=== PATIENT | male | born 1955 | race Caucasian/White ===

== ENCOUNTER 2024-07-25 10:10 | Emergency (ER) | payer BC, MEDICARE, OTHER ==
[2024-07-25] MEDS: Ketorolac 30 MG/ML SDV IVPUSH ONE (10:40)
[2024-07-25 10:55] LABS: BASOPHILS ABSOLUTE AUTO 0.05 K/uL (0.02-0.10); BASOPHILS PERCENT AUTO 0.3 % (0.0-0.5); EOSINOPHILS ABSOLUTE AUTO 0.04 K/uL (0.04-0.40); EOSINOPHILS PERCENT AUTO 0.2 % (1.0-5.0); HEMATOCRIT 46.3 % (40.0-54.0); HEMOGLOBIN 15.7 g/dL (13.0-18.0); LYMPHOCYTES ABSOLUTE AUTO 0.83 K/uL (1.50-4.00); LYMPHOCYTES PERCENT AUTO 4.5 % (20.0-40.0); MEAN CORPUSCULAR HEMOGLOBIN 29.8 pg (27.0-32.0); MEAN CORPUSCULAR HGB CONC 33.9 g/dL (31.0-35.0); MEAN CORPUSCULAR VOLUME 88 fL (76-96); MEAN PLATELET VOLUME 9.7 fL (6.0-10.0); MONOCYTES ABSOLUTE AUTO 1.65 K/uL (0.20-0.80); MONOCYTES PERCENT AUTO 8.9 % (3.0-10.0); NEUTROPHILS ABSOLUTE AUTO 15.96 K/uL (2.00-7.50); NEUTROPHILS PERCENT AUTO 86.1 % (45.0-70.0); PLATELET COUNT,PLT 295 K/uL (150-400); RED BLOOD CELL COUNT 5.26 M/uL (4.50-6.50); RED CELL DISTRIBUTION WIDTH 13.1 % (11.0-16.0); WHITE BLOOD CELL COUNT,WBC 18.5 K/uL (4.0-11.0)
[2024-07-25] MEDS: HYDROmorphone 2 MG/ML Syringe IVPUSH ONE (10:55)
[2024-07-25 11:15] LABS: APPEARANCE,URINE SLIGHTLY CLOUDY (CLEAR); COLOR,URINE OTHER; PH,URINE 5.5 (5.0-8.0); PROTEIN,URINE >=300 mg/dL (NEGATIVE)
[2024-07-25 11:15] LABS: INR 1.2 (1.0-3.5)
[2024-07-25 11:16] LABS: BILIRUBIN,URINE MODERATE (NEGATIVE); GLUCOSE,URINE NEGATIVE (NEGATIVE); HYALINE CASTS,URINE FEW /HPF; KETONES,URINE 80 mg/dL (NEGATIVE); LEUKOCYTE ESTERASE,URINE NEGATIVE (NEGATIVE); NITRITE,URINE NEGATIVE (NEGATIVE); OCCULT BLOOD,URINE MODERATE (NEGATIVE)
[2024-07-25 11:19] LABS: A/G RATIO 0.6 (0.8-2.0); ALBUMIN 3.1 g/dL (3.4-5.0); ANION GAP 19.4 mmol/L (5.0-15.0); BILIRUBIN TOTAL 1.2 mg/dL (0.0-1.0); BUN/CREATININE RATIO 16.7 (6-25); CALCIUM 9.7 mg/dL (8.5-10.1); CARBON DIOXIDE,CO2 24.6 mmol/L (21.0-32.0); CREATININE 0.78 mg/dL (0.70-1.30); EST CRCL DRUG DOSING (CG) 90.64 mL/min; PROTEIN TOTAL,TP 8.3 g/dL (6.4-8.2)
[2024-07-25 11:20] LABS: PROTHROMBIN TIME 12.5 sec (9.0-11.5)
[2024-07-25 11:25] LABS: LIPASE 13 U/L (16-77); MAGNESIUM 1.8 mg/dL (1.8-2.4); PRO B-TYPE NATRIUR PEPT,BNPPRO 166 pg/mL (0-125)
[2024-07-25 11:26] LABS: C-REACTIVE PROTEIN > 250.0 mg/L (<5.0)
[2024-07-25] MEDS: Iopamidol 755 Mg/ML 100 ML Bottle IV SCH (11:56)
[2024-07-25] MEDS: Sodium Chloride 0.9% 50 ML SDV FLUSH ONE (11:56)
[2024-07-25] MEDS: cefTRIAXone 2 GM in Sodium Chloride 0.9% 100 ML IV ONE (12:08)
[2024-07-25] MEDS: Azithromycin 500 MG in Sodium Chloride 0.9% 250 ML IV ONE (12:11)
[2024-07-25] MEDS: Sodium Chloride 0.9% 1,000 ML IV ONE (12:19)
[2024-07-25] MEDS: cefTRIAXone 2 GM Vial ONE (12:19)
[2024-07-25] MEDS: Apixaban 5 MG Tab PO ONE (13:49)
== END 2024-07-25 14:11 | disposition home or self-care (01) ==
LOC: LB.ED 10:10
DX: J18.9 Pneumonia, unspecified organism (principal); I26.99 Other pulmonary embolism without acute cor pulmonale; C34.92 Malignant neoplasm of unspecified part of left bronchus or lung; C34.91 Malignant neoplasm of unspecified part of right bronchus or lung
CPT/HCPCS: 36415; 71045; 71260; 80053; 81001; 83690; 83735; 83880; 84484; 85025; 85379; 85610; 85730; 86140; 93005; 96365; 96368; 96375; 99285-25; A9270-GY; J0456; J0696; J1171; J1885; J3490; J7030; J7050; Q9967